=== PATIENT | female | born 1950 | race Caucasian/White ===

== ENCOUNTER → 2016-11-11 | Outpatient (CLI) | payer OTHER ==
[~2016-11-11] MED LIST: DXY100 PO; EPP3/2 IM; FLNIN NAE; LISI-792 PO; LORA10CA2 PO
--- NOTE | 2016-11-11 13:32 | MAMMOGRAPHY REPORT ---
BILATERAL DIGITAL SCREENING MAMMOGRAM WITH CAD: 11/11/2016 TECHNIQUE: Current study was also evaluated with a Computer Aided Detection (CAD) system. Bilatera l CC and MLO views were obtained. COMPARISON: Comparison is made to exams dated: 11/11/2015 mammogram, 11/06/2014 mammogram, 10/31/2012 mammogram, 10/31/2011 mammogram, 11/01/2013 mammogram, and 10/26/2010 mammogram - [facility]. BREAST COMPOSITION: There are scattered areas of fibroglandular density in both breasts. FINDINGS: No suspicious masses, calcifications, or areas of architectural distortion are noted in e ither breast. There has been no significant interval change compared to prior exams. IMPRESSION: ACR BI-RADS CATEGORY 1: NEGATIVE There is no mammographic evidence of malignancy. A 1 year screening mammogram is recommended. The p atient will receive written notification of the results. Approximately 10% of breast cancers are not detected with mammography. A negative mammographic repor t should not delay biopsy if a clinically suggestive mass is present. Yumiko Rivera M.D. ah/:11/11/2016 09:31:47 Radiator Specialist: Sweta HOYOS(Krystian)(M), [facility] letter sent: Normal 1/2 BI-RADS Code: ACR BI-RADS Category 1: Negative
== END | disposition home or self-care (01) ==
LOC: C.MAMM 08:53
PROVIDERS: ATTEND Family Medicine
DX: Z12.31 Encounter for screening mammogram for malignant neoplasm of breast (principal)

== ENCOUNTER 2017-06-30 15:43 | Inpatient (IN) | payer OTHER ==
[~2017-06-30] VITALS: Ht 175.3 cm; Wt 109.0 kg
[2017-06-30] MEDS ORDERED: MoRPHine SULFATE 4 MG/ML 1 ML CARP\\VIAL IV STA ×3 (16:04→20:18)
[2017-06-30] MEDS ORDERED: SODIUM CHLORIDE 0.9% 1000ML 1,000 ML IV STA (16:04)
--- NOTE | 2017-06-30 16:18 | EMERGENCY ROOM VISIT NOTE ---
History First contact with patient: 15:51 Chief Complaint: ABDOMINAL PAIN Stated Complaint: STOMACH AND BOWEL PAIN,GAS History of Present Illness The patient is a 67 year old female who presents to the Emergency Room with complaints of left lower quadrant pain that started this morning. She states the pain has become constant, does not radiate, remains in the left lower quadrant, describes as a throbbing and squeezing pain, worse with certain movements, 6/10. She reports chronic issues with gas pain like this, but it usually responds to Gas-X, she took Gas-X today and it did not help at all. She has not tried anything else for the pain. Patient reports a long and complicated history of "GI issues" including diverticulosis, a known "helped" in her left-sided intestines that flares up, and colitis. She states the last time she had a flare of her symptoms was over 3 years ago. She reports some diarrhea off and on since yesterday, but denies any blood or dark tarry stools. She denies any fevers or chills, nausea, vomiting, back pain, urinary symptoms. Past surgical history includes cholecystectomy and splenectomy. Review of Systems A complete 10 point review of systems was reviewed with the patient with pertinent positives and negatives as per history of present illness. All else were negative. Past Medical/Surgical History Medical Problems: (1) Dyslipidemia (2) Hypertension (3) Meningioma (4) Pulmonary nodule Surgical Problems: (1) Status post cholecystectomy (2) Status post hysterectomy (3) Status post splenectomy Family History Heart disease Malignancy Social History Smoking Status: Never Smoker Drug Use: none Marital Status: Housing Status: lives with family Current/Historical Medications Scheduled Amlodipine Besylate (Amlodipine Besylate), 5 MG PO DAILY Azelastine HCl (Azelastine Hydrochloride), 2 SPRAYS RICHARD HS Epinephrine (Epipen 2-Gerhard), 0.3 MG INJ PRN UD Fluticasone Propionate (Fluticasone Propionate), 2 SPRAYS RICHARD BID Multivitamins/Minerals (Mvi With Minerals), 2 TAB PO DAILY [True Biotic], 1 TAB PO DAILY Allergies Uncoded Allergies: TREE NUTS (Allergy, Intermediate, LIP & TONGUE SWELLING, 07/10/12) Physical Exam Vital Signs Date Time Temp Pulse Resp B/P (MAP) Pulse Ox O2 Delivery O2 Flow Rate FiO2 06/30/17 23:01 123/86 06/30/17 22:50 70 96 06/30/17 22:35 73 14 92 06/30/17 22:31 141/76 06/30/17 22:27 90 20 123/78 98 Room Air 06/30/17 22:26 123/78 06/30/17 22:20 70 93 06/30/17 22:05 68 14 95 06/30/17 22:01 117/75 06/30/17 21:50 71 13 93 06/30/17 21:41 73 06/30/17 21:20 72 18 95 06/30/17 21:05 75 20 95 06/30/17 21:01 119/74 06/30/17 20:50 77 13 95 06/30/17 20:45 77 16 94 Nasal Cannula 2.0 06/30/17 20:34 Room Air 2.0 06/30/17 20:31 127/80 06/30/17 20:30 80 23 89 Room Air 06/30/17 20:01 128/77 06/30/17 20:00 77 24 91 06/30/17 19:45 74 16 92 06/30/17 19:31 139/77 06/30/17 19:30 70 16 96 06/30/17 19:28 137/80 06/30/17 18:45 77 16 06/30/17 18:09 68 20 144/86 98 Room Air 06/30/17 17:35 68 06/30/17 15:47 36.9 97 20 182/107 94 Room Air Physical Exam CONSTITUTIONAL: No acute distress. Well appearing and well nourished. Alert and oriented X 4 with normal affect. HEENT: Normocephalic, atraumatic. Pupils equal, round and reactive to light, EOMI. TMs normal. Pharynx normal. Moist mucous membranes. NECK: Supple, full active range of motion without discomfort. RESPIRATORY: Clear to auscultation bilaterally with no wheezing, crackles, rhonchi or stridor. Equal expansion bilaterally. CARDIOVASCULAR: Regular rate and rhythm with no murmurs, rubs or gallops. Normal peripheral perfusion. No edema. GASTROINTESTINAL: Moderately tender to palpation in the left lower quadrant, no rebound tenderness or guarding. The remainder of the abdomen is nontender to palpation. No palpable masses or organomegaly. Soft, nondistended, obese. Hyperactive bowel sounds present in all quadrants. MUSCULOSKELETAL: Full range of motion of all joints without discomfort. INTEGUMENTARY: No rash or other significant dermatologic conditions noted. NEUROLOGIC: Cranial nerves II-XII grossly intact. No focal neurologic deficits noted. Medical Decision & Procedures ER Provider Diagnostic Interpretation: ABD/PELVIS IV AND ORAL CONT CLINICAL HISTORY: 67 years-old Female presenting with LLQ pain, eval diverticulitis, colitis, abscess. TECHNIQUE: Multidetector CT of the abdomen and pelvis was performed after the administration of intravenous contrast. IV contrast: 116 mL of Optiray 320. A dose lowering technique was used consistent with the principles of ALARA (as low as reasonably achievable). COMPARISON: 11/05/2012. CT DOSE (mGy.cm): The estimated cumulative dose is 1492.57 mGy.cm. 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 Lung bases: Stable 8 mm solid perifissural right middle lobe nodule (series 3 image 19) no new nodule. Bandlike opacity in the left lung base likely atelectasis or scarring. Multichamber enlargement of the heart. No pericardial or pleural effusion. Liver: Mildly macronodular contour of the liver. No focal lesion. Patent hepatic vasculature. Biliary: Stable degree of moderate intrahepatic and marked extrahepatic biliary ductal dilatation. No gross evidence of an obstructing mass or calculus. Gallbladder surgically absent. Pancreas: Mild prominence of the pancreatic duct, unchanged from prior. Normal parenchyma. Spleen: Splenosis in the left upper quadrant likely from prior trauma and/or splenectomy. Adrenal glands: Mild nodular thickening of the left adrenal gland, nonspecific and unchanged from prior. Right adrenal gland normal. Kidneys and ureters: Normal. No hydronephrosis. Bladder: Normal. Pelvic organs: Uterus and ovaries normal. Bowel: Moderate stool burden. Diverticulosis at the junction of the descending and sigmoid colon with focal wall thickening and pericolonic fat stranding, likely chronic diverticular disease with superimposed mild acute diverticulitis. Few diverticula also noted in the region of the splenic flexure with associated bowel wall thickening, likely chronic diverticular disease. No bowel obstruction. Small bowel loop within the right ventral abdominal wall hernia, unchanged. Hyperdensity in the lumen of the proximal bowel may relate to medication administration. Peritoneal cavity: No free fluid or intraperitoneal gas. Lymph nodes: No enlarged lymph nodes in the abdomen or pelvis. Vasculature: Atherosclerosis of the normal caliber abdominal aorta. IVC patent. Abdominal wall: Postsurgical changes of the anterior abdominal wall with focal herniation of small bowel in the right ventral abdomen, unchanged. Small fat-containing umbilical hernia. Calcified granulomas in the buttocks likely relate to medication administration. Musculoskeletal: Degenerative changes of the spine. IMPRESSION: 1. Findings consistent with chronic diverticular disease at the junction of the descending and sigmoid colon with superimposed mild uncomplicated acute diverticulitis. 2. Chronic findings as above. Laboratory Results 06/30/17 16:35 Red Blood Count 4.22, Mean Corpuscular Volume 95.3, Mean Corpuscular Hemoglobin 31.5, Mean Corpuscular Hemoglobin Concent 33.1, Mean Platelet Volume 10.8, Neutrophils (%) (Auto) 57.9, Lymphocytes (%) (Auto) 30.3, Monocytes (%) (Auto) 10.3, Eosinophils (%) (Auto) 0.9, Basophils (%) (Auto) 0.4, Neutrophils # (Auto ) 6.08, Lymphocytes # (Auto) 3.18, Monocytes # (Auto) 1.08, Eosinophils # (Auto ) 0.09, Basophils # (Auto) 0.04 06/30/17 16:35 Test 06/30/17 00:00 06/30/17 16:35 Urine Color YELLOW Urine Appearance CLEAR (CLEAR) Urine pH 5.5 (4.5-7.5) Urine Specific [place] 1.010 (1.000-1.030) Urine Protein NEG (NEG) Urine Glucose (UA) NEG (NEG) Urine Ketones NEG (NEG) Urine Occult Blood TRACE (NEG) Urine Nitrite NEG (NEG) Urine Bilirubin NEG (NEG) Urine Urobilinogen NEG (NEG) Urine Leukocyte Esterase NEG (NEG) Urine WBC (Auto) 1-5 /hpf (0-5) Urine RBC (Auto) 0-4 /hpf (0-4) Urine Hyaline Casts (Auto) 1-5 /lpf (0-5) Urine Epithelial Cells (Auto) 5-10 /lpf (0-5) Urine Bacteria (Auto) NEG (NEG) White Blood Count 10.49 K/uL (4.8-10.8) Red Blood Count 4.22 M/uL (4.2-5.4) Hemoglobin 13.3 g/dL (12.0-16.0) Hematocrit 40.2 % (37-47) Mean Corpuscular Volume 95.3 fL (80-100) Mean Corpuscular Hemoglobin 31.5 pg (25-34) Mean Corpuscular Hemoglobin Concent 33.1 g/dl (32-36) Platelet Count 403 K/uL (130-400) Mean Platelet Volume 10.8 fL (7.4-10.4) Neutrophils (%) (Auto) 57.9 % Lymphocytes (%) (Auto) 30.3 % Monocytes (%) (Auto) 10.3 % Eosinophils (%) (Auto) 0.9 % Basophils (%) (Auto) 0.4 % Neutrophils # (Auto) 6.08 K/uL (1.4-6.5) Lymphocytes # (Auto) 3.18 K/uL (1.2-3.4) Monocytes # (Auto) 1.08 K/uL (0.11-0.59) Eosinophils # (Auto) 0.09 K/uL (0-0.5) Basophils # (Auto) 0.04 K/uL (0-0.2) RDW Standard Deviation 43.7 fL (36.4-46.3) RDW Coefficient of Variation 12.7 % (11.5-14.5) Immature Granulocyte % (Auto) 0.2 % Immature Granulocyte # (Auto) 0.02 K/uL (0.00-0.02) Anion Gap 8.0 mmol/L (3-11) Est Creatinine Clear Calc Drug Dose 95.8 ml/min Estimated GFR () 93.9 Estimated GFR (Non- 81.0 BUN/Creatinine Ratio 15.6 (10-20) Lactic Acid Level 1.2 mmol/L (0.4-2.0) Calcium Level 9.1 mg/dl (8.5-10.1) Total Bilirubin 0.8 mg/dl (0.2-1) Direct Bilirubin 0.2 mg/dl (0-0.2) Aspartate Amino Transf (AST/SGOT) 19 U/L (15-37) Alanine Aminotransferase (ALT/SGPT) 18 U/L (12-78) Alkaline Phosphatase 161 U/L (45-117) Total Protein 8.0 gm/dl (6.4-8.2) Albumin 3.6 gm/dl (3.4-5.0) Lipase 94 U/L (73-393) Medications Administered Medications (Trade) Dose Ordered Sig/Misti Route Start Time Stop Time Status Last Admin Dose Admin Sodium Chloride 1,000 ml @ 999 mls/hr Q1H1M STAT IV 06/30/17 16:04 06/30/17 17:04 DC 06/30/17 16:53 999 MLS/HR Morphine Sulfate (MoRPHine SULFATE INJ) 4 mg NOW STAT IV 06/30/17 16:04 06/30/17 16:07 DC 06/30/17 16:53 4 MG Morphine Sulfate (MoRPHine SULFATE INJ) 4 mg NOW STAT IV 06/30/17 19:27 06/30/17 19:28 DC 06/30/17 19:35 4 MG Morphine Sulfate (MoRPHine SULFATE INJ) 4 mg NOW STAT IV 06/30/17 20:18 06/30/17 20:20 DC 06/30/17 20:29 4 MG Ondansetron HCl (Zofran Inj) 4 mg NOW STAT IV 06/30/17 20:18 06/30/17 20:20 DC 06/30/17 20:26 4 MG Piperacillin Sod/ Tazobactam Sod (Zosyn Iv) 4.5 gm NOW STAT IV 06/30/17 21:54 06/30/17 21:55 DC 06/30/17 22:47 4.5 GM Medical Decision CC: Patient presenting with complaint of left lower quadrant abdominal pain Interpretation of Labs: No leukocytosis, no anemia, no significant electrolyte abnormalities, normal renal function, normal liver enzymes and lipase, normal lactic acid. UA negative. Differential Diagnosis: Includes, but not limited to diverticulitis, diverticulosis, gastroenteritis, colitis, small bowel obstruction, appendicitis , intra-abdominal abscess, among others. Medication Reconciliation: I attest that I have personally reviewed the patient' s current medication list. Vital signs review: I reviewed the patient's vital signs and interpret them as follows: T: Afebrile; BP: Hypertensive; HR: Tachycardic; RR: Within normal limits; Pulse Ox: Within normal limits on room air. Blood pressure screening: The patient was found to have an elevated blood pressure, this was improved after interventions and was felt to be situational. Summary: Patient was evaluated at bedside, history of physical exam performed. Patient is alert and oriented, in no acute distress, but does appear to be in some pain. Resting in the stretcher. Patient is moderately tender in the left lower quadrant to palpation, the abdomen is otherwise soft and nontender. Hyperactive bowel sounds. Orders were placed at bedside for labs, UA, IV fluids for hydration, IV morphine for pain, CT abdomen/pelvis with oral and IV contrast to evaluate for intra-abdominal infection/inflammatory bowel disease. Patient discussed with Dr. Lo, who agrees with my assessment and plan. Labs reviewed as above, no acute abnormalities. CT imaging reviewed, consistent with mild acute diverticulitis, uncomplicated with no evidence of abscess, obstruction, or perforation. Patient reassessed multiple times throughout ED stay, she has had intermittent improvement in pain with morphine, however her pain continues to return and remain severe. She has also had several episodes of vomiting unrelieved with Zofran. I discussed all results with the patient and her , and patient states she does not think she will be able to tolerate oral medication and is not comfortable being discharged. I discussed the option of admission, she is agreeable to this. Patient states she has been on Cipro/Flagyl treatment in the past and did not tolerate this well. IV Zosyn ordered, with option for Augmentin for outpatient treatment upon discharge. I spoke with Dr. Alonso, hospitalist, who agrees to admit the patient. Patient stable at time of admission. Impression Primary Impression: Acute diverticulitis Additional Impression: Nausea & vomiting Departure Information Dispostion Admitted as an inpatient Condition FAIR Referrals Keanu Conde M.D. (PCP) Patient Instructions My [facility] Problem Qualifiers Additional Impression: Nausea & vomiting Vomiting type: unspecified Vomiting Intractability: intractable Qualified Codes: R11.2 - Nausea with vomiting, unspecified
[2017-06-30] MEDS ORDERED: ALPHTAB4 PO (16:42)
[2017-06-30] MEDS ORDERED: FLNIN/ NAE (16:42)
[2017-06-30] MEDS ORDERED: AZEL0.1S2 NAE (16:42)
[2017-06-30] MEDS ORDERED: NRV/5 PO (16:42)
[2017-06-30] MEDS ORDERED: EPP3/2 INJ (16:42)
[2017-06-30] MEDS ORDERED: TRUE BIOTIC PO (16:42)
[2017-06-30] MEDS ORDERED: MULT-513 PO (16:42)
[2017-06-30 16:47] LABS: BASO % 0.4 %; BASO ABS # 0.04 K/uL (0-0.2); COMPLETE YES; EOS % 0.9 %; HEMATOCRIT 40.2 % (37-47); IG% 0.2 %; LYMPH % 30.3 %; LYMPH ABS # 3.18 K/uL (1.2-3.4); MEAN CELL VOLUME 95.3 fL (80-100); MEAN CORPUSCULAR HEMOGLOBIN 31.5 pg (25-34); MEAN CORPUSCULAR HGB CONC 33.1 g/dl (32-36); MEAN PLATELET VOLUME 10.8 fL (7.4-10.4); MONO % 10.3 %; NEUT % 57.9 %; PLATELET COUNT 403 K/uL (130-400); RED BLOOD COUNT 4.22 M/uL (4.2-5.4); WHITE BLOOD COUNT 10.49 K/uL (4.8-10.8)
[2017-06-30 16:57] LABS: URINE APPEARANCE CLEAR (CLEAR); URINE BILIRUBIN NEG (NEG); URINE COLOR YELLOW; URINE NITRITE NEG (NEG); URINE PH 5.5 (4.5-7.5); UROBILINOGEN NEG (NEG)
[2017-06-30 16:58] LABS: MANUAL MICROSCOPIC REQUIRED? NO; REVIEW REQ? NO
[2017-06-30 17:15] LABS: BUN/CREATININE RATIO 15.6 (10-20); CALCIUM 9.1 mg/dl (8.5-10.1); CREATININE 0.77 mg/dl (0.60-1.20); POTASSIUM 3.9 mmol/L (3.5-5.1)
[2017-06-30] MEDS ORDERED: OPTIRAY 320 IV PRN (18:00)
--- NOTE | 2017-06-30 19:16 | DIAGNOSTIC IMAGING REPORT ---
ABD/PELVIS IV AND ORAL CONT CLINICAL HISTORY: 67 years-old Female presenting with LLQ pain, eval diverticulitis, colitis, abscess. TECHNIQUE: Multidetector CT of the abdomen and pelvis was performed after the administration of intravenous contrast. IV contrast: 116 mL of Optiray 320. A dose lowering technique was used consistent with the principles of ALARA (as low as reasonably achievable). COMPARISON: 11/05/2012. CT DOSE (mGy.cm): The estimated cumulative dose is 1492.57 mGy.cm. 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 Lung bases: Stable 8 mm solid perifissural right middle lobe nodule (series 3 image 19) no new nodule. Bandlike opacity in the left lung base likely atelectasis or scarring. Multichamber enlargement of the heart. No pericardial or pleural effusion. Liver: Mildly macronodular contour of the liver. No focal lesion. Patent hepatic vasculature. Biliary: Stable degree of moderate intrahepatic and marked extrahepatic biliary ductal dilatation. No gross evidence of an obstructing mass or calculus. Gallbladder surgically absent. Pancreas: Mild prominence of the pancreatic duct, unchanged from prior. Normal parenchyma. Spleen: Splenosis in the left upper quadrant likely from prior trauma and/or splenectomy. Adrenal glands: Mild nodular thickening of the left adrenal gland, nonspecific and unchanged from prior. Right adrenal gland normal. Kidneys and ureters: Normal. No hydronephrosis. Bladder: Normal. Pelvic organs: Uterus and ovaries normal. Bowel: Moderate stool burden. Diverticulosis at the junction of the descending and sigmoid colon with focal wall thickening and pericolonic fat stranding, likely chronic diverticular disease with superimposed mild acute diverticulitis. Few diverticula also noted in the region of the splenic flexure with associated bowel wall thickening, likely chronic diverticular disease. No bowel obstruction. Small bowel loop within the right ventral abdominal wall hernia, unchanged. Hyperdensity in the lumen of the proximal bowel may relate to medication administration. Peritoneal cavity: No free fluid or intraperitoneal gas. Lymph nodes: No enlarged lymph nodes in the abdomen or pelvis. Vasculature: Atherosclerosis of the normal caliber abdominal aorta. IVC patent. Abdominal wall: Postsurgical changes of the anterior abdominal wall with focal herniation of small bowel in the right ventral abdomen, unchanged. Small fat-containing umbilical hernia. Calcified granulomas in the buttocks likely relate to medication administration. Musculoskeletal: Degenerative changes of the spine. IMPRESSION: 1. Findings consistent with chronic diverticular disease at the junction of the descending and sigmoid colon with superimposed mild uncomplicated acute diverticulitis. 2. Chronic findings as above. Electronically signed by: Arik Carlson M.D. 06/30/2017 7:14 PM Dictated Date/Time: 06/30/2017 7:05 PM
[2017-06-30] MEDS ORDERED: ONDANSETRON INJ 2 MG/ML 2 ML VIAL IV STA (20:18)
[2017-06-30] MEDS ORDERED: PIPERACILLIN/TAZOBACTAM 4.5 GM/100ML D5W IV STA (21:54)
--- NOTE | 2017-06-30 23:03 | History and Physical ---
History & Physical Date & Time of Service: Jun 30, 2017 at 23:03 Chief Complaint: Stomach And Bowel Pain,Gas Primary Care Physician: Keanu Conde M.D. History of Present Illness Source: patient, spouse, clinic records, hospital records 67 year old female with PMH of HTN, Diverticulosis, obesity, dyslipidemia presents to the Emergency Room with complaints of left lower quadrant abdominal pain associated with nausea and vomiting that started this morning. Pt describes the pain has constant, non radiate, throbbing and squeezing pain, worse with certain movements, 6/10. she said that she tried to take Gas-X with no relief. She said that yesterday she had diarrhea that seems resolved. Pt saw gastro back in January for her on/off diverticulosis. she said that she usually has pain base on what she eats, but she she said today pain was worst. she said that the last time she had similar abdominal pain was 3 yrs ago Pt said that she cannot tolerated flagyl and cipro because she develops yeast infection while on them. Denies any chest pain, palpitation, dizziness, fevers, chills, urinary symptoms. Past Medical/Surgical History Medical Problems: (1) Dyslipidemia Status: Chronic (2) Hypertension Status: Chronic (3) Meningioma Permanent Comment: 6 x [address] 09/16/14 Status: Chronic (4) Pulmonary nodule Permanent Comment: 6 mm nodule right lung per CT 09/18/14 Status: Chronic Surgical Problems: (1) Status post cholecystectomy Status: Chronic (2) Status post hysterectomy Status: Chronic (3) Status post splenectomy Status: Chronic Family History Heart disease Malignancy Social History Smoking Status: Never Smoker Drug Use: none Marital Status: Immunizations History of Influenza Vaccine: Yes Influenza Vaccine Date: Jul 05, 2012 History of Tetanus Vaccine?: Yes History of Pneumococcal: No History of Hepatitis B Vaccine: Yes Multi-Drug Resistant Organisms History of MDRO: No Allergies Uncoded Allergies: TREE NUTS (Allergy, Intermediate, LIP & TONGUE SWELLING, 07/10/12) Home Medications Scheduled Rvgou-X-Dtdttuekiyyyi (Beano), 2 TAB PO TIDM Amlodipine Besylate (Amlodipine Besylate), 5 MG PO DAILY Azelastine HCl (Azelastine Hydrochloride), 2 SPRAYS RICHARD HS Epinephrine (Epipen 2-Gerhard), 0.3 MG INJ PRN UD Fluticasone Propionate (Fluticasone Propionate), 2 SPRAYS RICHARD BID Multivitamins/Minerals (Mvi With Minerals), 2 TAB PO DAILY [True Biotic], 1 TAB PO DAILY Review of Systems Constitutional: No fever, No chills Eyes: No worsening of vision, No diplopia ENT: No unusual epistaxis, No nasal symptoms Respiratory: No cough, No sputum, No wheezing, No shortness of breath Cardiovascular: No chest pain, No claudication, No palpitations Abdomen: + pain, + nausea, + vomiting Musculoskeletal: No calf pain Genitourinary - Female: No dysuria, No urinary frequency Neurologic: No paralysis, No weakness Psychiatric: No anxiety, No substance abuse Endocrine: No fatigue Hematologic / Lymphatic: No abnormal bleeding/bruising Integumentary: No rash, No itch Physical Exam Vital Signs Date Time Temp Pulse Resp B/P (MAP) Pulse Ox O2 Delivery O2 Flow Rate FiO2 06/30/17 22:27 90 20 123/78 98 Room Air 06/30/17 21:41 73 06/30/17 20:45 77 16 94 Nasal Cannula 2.0 06/30/17 20:34 Room Air 2.0 06/30/17 20:31 127/80 06/30/17 20:30 80 23 89 Room Air 06/30/17 20:01 128/77 06/30/17 20:00 77 24 91 06/30/17 19:45 74 16 92 06/30/17 19:31 139/77 06/30/17 19:30 70 16 96 06/30/17 19:28 137/80 06/30/17 18:45 77 16 06/30/17 18:09 68 20 144/86 98 Room Air 06/30/17 17:35 68 06/30/17 15:47 36.9 97 20 182/107 94 Room Air General Appearance: WD/WN, no apparent distress Head: normocephalic, atraumatic Eyes: normal inspection, PERRL, EOMI ENT: hearing grossly normal Neck: no JVD, trachea midline Respiratory/Chest: normal breath sounds, no respiratory distress, no accessory muscle use Cardiovascular: regular rate, rhythm, no edema, no JVD Abdomen/GI: + tenderness (LLQ ) Back: no CVA tenderness Extremities/Musculoskelatal: no calf tenderness Neurologic/Psych: no motor/sensory deficits, alert, normal mood/affect, oriented x 3 Skin: warm/dry, no rash Diagnostics Laboratory Results Results Past 24 Hours Test 06/30/17 00:00 06/30/17 16:35 Range/Units Urine Color YELLOW Urine Appearance CLEAR CLEAR Urine pH 5.5 4.5-7.5 Urine Specific [place] 1.010 1.000-1.030 Urine Protein NEG NEG Urine Glucose (UA) NEG NEG Urine Ketones NEG NEG Urine Occult Blood TRACE NEG Urine Nitrite NEG NEG Urine Bilirubin NEG NEG Urine Urobilinogen NEG NEG Urine Leukocyte Esterase NEG NEG Urine WBC (Auto) 1-5 0-5 /hpf Urine RBC (Auto) 0-4 0-4 /hpf Urine Hyaline Casts (Auto) 1-5 0-5 /lpf Urine Epithelial Cells (Auto) 5-10 0-5 /lpf Urine Bacteria (Auto) NEG NEG White Blood Count 10.49 4.8-10.8 K/uL Red Blood Count 4.22 4.2-5.4 M/uL Hemoglobin 13.3 12.0-16.0 g/dL Hematocrit 40.2 37-47 % Mean Corpuscular Volume 95.3 80-100 fL Mean Corpuscular Hemoglobin 31.5 25-34 pg Mean Corpuscular Hemoglobin Concent 33.1 32-36 g/dl Platelet Count 403 130-400 K/uL Mean Platelet Volume 10.8 7.4-10.4 fL Neutrophils (%) (Auto) 57.9 % Lymphocytes (%) (Auto) 30.3 % Monocytes (%) (Auto) 10.3 % Eosinophils (%) (Auto) 0.9 % Basophils (%) (Auto) 0.4 % Neutrophils # (Auto) 6.08 1.4-6.5 K/uL Lymphocytes # (Auto) 3.18 1.2-3.4 K/uL Monocytes # (Auto) 1.08 0.11-0.59 K/uL Eosinophils # (Auto) 0.09 0-0.5 K/uL Basophils # (Auto) 0.04 0-0.2 K/uL RDW Standard Deviation 43.7 36.4-46.3 fL RDW Coefficient of Variation 12.7 11.5-14.5 % Immature Granulocyte % (Auto) 0.2 % Immature Granulocyte # (Auto) 0.02 0.00-0.02 K/uL Sodium Level 137 136-145 mmol/L Potassium Level 3.9 3.5-5.1 mmol/L Chloride Level 106 98-107 mmol/L Carbon Dioxide Level 23 21-32 mmol/L Anion Gap 8.0 3-11 mmol/L Blood Urea Nitrogen 12 7-18 mg/dl Creatinine 0.77 0.60-1.20 mg/dl Est Creatinine Clear Calc Drug Dose 95.8 ml/min Estimated GFR () 93.9 Estimated GFR (Non- 81.0 BUN/Creatinine Ratio 15.6 10-20 Random Glucose 93 70-99 mg/dl Lactic Acid Level 1.2 0.4-2.0 mmol/L Calcium Level 9.1 8.5-10.1 mg/dl Total Bilirubin 0.8 0.2-1 mg/dl Direct Bilirubin 0.2 0-0.2 mg/dl Aspartate Amino Transf (AST/SGOT) 19 15-37 U/L Alanine Aminotransferase (ALT/SGPT) 18 12-78 U/L Alkaline Phosphatase 161 45-117 U/L Total Protein 8.0 6.4-8.2 gm/dl Albumin 3.6 3.4-5.0 gm/dl Lipase 94 73-393 U/L Diagnostic Radiology ABD/PELVIS IV AND ORAL CONT CLINICAL HISTORY: 67 years-old Female presenting with LLQ pain, eval diverticulitis, colitis, abscess. TECHNIQUE: Multidetector CT of the abdomen and pelvis was performed after the administration of intravenous contrast. IV contrast: 116 mL of Optiray 320. A dose lowering technique was used consistent with the principles of ALARA (as low as reasonably achievable). COMPARISON: 11/05/2012. CT DOSE (mGy.cm): The estimated cumulative dose is 1492.57 mGy.cm. 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 Lung bases: Stable 8 mm solid perifissural right middle lobe nodule (series 3 image 19) no new nodule. Bandlike opacity in the left lung base likely atelectasis or scarring. Multichamber enlargement of the heart. No pericardial or pleural effusion. Liver: Mildly macronodular contour of the liver. No focal lesion. Patent hepatic vasculature. Biliary: Stable degree of moderate intrahepatic and marked extrahepatic biliary ductal dilatation. No gross evidence of an obstructing mass or calculus. Gallbladder surgically absent. Pancreas: Mild prominence of the pancreatic duct, unchanged from prior. Normal parenchyma. Spleen: Splenosis in the left upper quadrant likely from prior trauma and/or splenectomy. Adrenal glands: Mild nodular thickening of the left adrenal gland, nonspecific and unchanged from prior. Right adrenal gland normal. Kidneys and ureters: Normal. No hydronephrosis. Bladder: Normal. Pelvic organs: Uterus and ovaries normal. Bowel: Moderate stool burden. Diverticulosis at the junction of the descending and sigmoid colon with focal wall thickening and pericolonic fat stranding, likely chronic diverticular disease with superimposed mild acute diverticulitis. Few diverticula also noted in the region of the splenic flexure with associated bowel wall thickening, likely chronic diverticular disease. No bowel obstruction. Small bowel loop within the right ventral abdominal wall hernia, unchanged. Hyperdensity in the lumen of the proximal bowel may relate to medication administration. Peritoneal cavity: No free fluid or intraperitoneal gas. Lymph nodes: No enlarged lymph nodes in the abdomen or pelvis. Vasculature: Atherosclerosis of the normal caliber abdominal aorta. IVC patent. Abdominal wall: Postsurgical changes of the anterior abdominal wall with focal herniation of small bowel in the right ventral abdomen, unchanged. Small fat-containing umbilical hernia. Calcified granulomas in the buttocks likely relate to medication administration. Musculoskeletal: Degenerative changes of the spine. IMPRESSION: 1. Findings consistent with chronic diverticular disease at the junction of the descending and sigmoid colon with superimposed mild uncomplicated acute diverticulitis. 2. Chronic findings as above. Electronically signed by: Arik Carlson M.D. 06/30/2017 7:14 PM Dictated Date/Time: 06/30/2017 7:05 PM Impression Assessment and Plan Acute diverticulitis Present with LLQ abdominal pain associated with Nausea and vomiting CT abd/Pelvis shoed findings consistent with chronic diverticular disease at the junction of the descending and sigmoid colon with superimposed mild uncomplicated acute diverticulitis. Received Zosyn in the ER Will continue IV zosyb for now Pain control and IVF NPO for now GI consult Lung Nodule Stable HTN continue Novasc stable DVT px on Lovenox subq Code Status Full code Level of Care Med/Surg Resuscitation Status FULL RESUSCITATION VTE Prophylaxis VTE Risk Assessment Done? Y/N: Yes Risk Level: Moderate Given or contraindicated: Enoxaparin (Lovenox)SQ
[2017-07-01] MEDS ORDERED: PIPERACILL/TAZOBAC CONSULT ACTIVE PRN (03:00)
[2017-07-01] MEDS: SODIUM CHLORIDE 0.9% 1000ML 1,000 ML IV SCH ×2 (03:26→13:20)
[2017-07-01 03:53] VITALS: BP 160/85; PULSE 70; TEMP 36.7; Ht 175.3 cm; Wt 109.0 kg
[2017-07-01] MEDS: PIPERACILL/TAZOBAC IV 3.375 GM in DEXTROSE 5% 100ML 100 ML IV SCH ×2 (04:15→12:00)
[2017-07-01] MEDS: ONDANSETRON INJ 2 MG/ML 2 ML VIAL IV PRN ×2 (04:15→09:02)
[2017-07-01 06:30] LABS: INR 0.9 (0.9-1.1)
[2017-07-01] MEDS ORDERED: INFLUENZA VACCINE HIGH DOSE 65+ 0.5 ML SYR IM. ONE (06:30)
[2017-07-01] MEDS ORDERED: INFLUENZA ADMINISTRATION CHARGE ONE (06:30)
[2017-07-01 07:13] LABS: BUN/CREATININE RATIO 16.4 (10-20); CALCIUM 8.6 mg/dl (8.5-10.1); CREATININE 0.62 mg/dl (0.60-1.20); POTASSIUM 3.9 mmol/L (3.5-5.1)
[2017-07-01 07:15] LABS: ALB/GLOB RATIO 0.7 (0.9-2)
[2017-07-01 08:00] VITALS: O2SAT 92
[2017-07-01] MEDS: FLUTICASONE PROPIONATE NA SPR 16 GM BTL NAE SCH ×2 (08:00→19:56)
[2017-07-01] MEDS: CEROVITE ADV FORMULA TAB PO SCH (08:00)
[2017-07-01] MEDS: [UNRECOGNIZED DRUG - OTHER] SCH (08:00)
[2017-07-01] MEDS ORDERED: PROMETHAZINE HCL INJ 12.5 MG in SODIUM CHLORIDE 0.9% 50ML 50 ML IV PRN (10:45)
[2017-07-01] MEDS: AMLODIPINE BESYLATE 5 MG TAB PO SCH (13:16)
[2017-07-01] MEDS: ENOXAPARIN 40 MG/0.4 ML SYR SQ SCH (13:20)
--- NOTE | 2017-07-01 14:07 | Medical Consult ---
Consultation Note Date of Service Jul 01, 2017. Consultation Note Reason for consult: diverticulitis Source: patient, clinic records, hospital records 67 yo female with h/o diverticulitis. She has had long h/o intermittent LLQ pain that occurs q 2-3 months and typically resolves after a day after taking Gas-x and Immodium. She has a prior h/o diverticulitis, with ER visits in 2011 and 2012; csocpy in 2013 showed sigmoid tics but was limited by fair prep. She is now admitted for LLQ pain that began am and is similar to prior attacks , but did not resolve by Monday afternoon. She presented to ER Mon evening, and underwent CT which suggested uncomplicated diverticulitis. WBC was normal. She denied h/o n/v; denies fever. She was placed on Zosyn overnight. At present, she has no pain, is passing flatus, and is hungry. Past Medical/Surgical History Medical Problems: (1) Dyslipidemia Status: Chronic (2) Hypertension Status: Chronic (3) Meningioma Permanent Comment: 6 x [address] 09/16/14 Status: Chronic (4) Pulmonary nodule Permanent Comment: 6 mm nodule right lung per CT 09/18/14 Status: Chronic Surgical Problems: (1) Status post cholecystectomy Status: Chronic (2) Status post hysterectomy Status: Chronic (3) Status post splenectomy Status: Chronic Family History Heart disease Malignancy Social History Smoking Status: Never Smoker Drug Use: none Marital Status: Immunizations History of Influenza Vaccine: Yes Influenza Vaccine Date: Jul 05, 2012 History of Tetanus Vaccine?: Yes History of Pneumococcal: No History of Hepatitis B Vaccine: Yes Multi-Drug Resistant Organisms History of MDRO: No Allergies Uncoded Allergies: TREE NUTS (Allergy, Intermediate, LIP & TONGUE SWELLING, 07/10/12) Home Medications Scheduled Kdtyu-Q-Paummtjshrjvi (Beano), 2 TAB PO TIDM Amlodipine Besylate (Amlodipine Besylate), 5 MG PO DAILY Azelastine HCl (Azelastine Hydrochloride), 2 SPRAYS RICHARD HS Epinephrine (Epipen 2-Gerhard), 0.3 MG INJ PRN UD Fluticasone Propionate (Fluticasone Propionate), 2 SPRAYS RICHARD BID Multivitamins/Minerals (Mvi With Minerals), 2 TAB PO DAILY [True Biotic], 1 TAB PO DAILY Review of Systems Constitutional: No fever, No chills Eyes: No worsening of vision, No diplopia ENT: No unusual epistaxis, No nasal symptoms Respiratory: No cough, No sputum, No wheezing, No shortness of breath Cardiovascular: No chest pain, No claudication, No palpitations Abdomen: + pain, + nausea, + vomiting Musculoskeletal: No calf pain Genitourinary - Female: No dysuria, No urinary frequency Neurologic: No paralysis, No weakness Psychiatric: No anxiety, No substance abuse Endocrine: No fatigue Hematologic / Lymphatic: No abnormal bleeding/bruising Integumentary: No rash, No itch Physical Ex - H&P Physical Exam Vital Signs Date Time Temp Pulse Resp B/P (MAP) Pulse Ox O2 Delivery O2 Flow Rate FiO2 07/01/17 08:00 92 Room Air 07/01/17 03:53 36.7 70 20 160/85 Room Air 06/30/17 23:20 73 13 92 Nasal Cannula 06/30/17 23:05 67 14 94 06/30/17 23:01 123/86 06/30/17 22:50 70 96 06/30/17 22:35 73 14 92 06/30/17 22:31 141/76 06/30/17 22:27 90 20 123/78 98 Room Air 06/30/17 22:26 123/78 06/30/17 22:20 70 93 06/30/17 22:05 68 14 95 06/30/17 22:01 117/75 06/30/17 21:50 71 13 93 06/30/17 21:41 73 06/30/17 21:20 72 18 95 06/30/17 21:05 75 20 95 06/30/17 21:01 119/74 06/30/17 20:50 77 13 95 06/30/17 20:45 77 16 94 Nasal Cannula 2.0 06/30/17 20:34 Room Air 2.0 06/30/17 20:31 127/80 06/30/17 20:30 80 23 89 Room Air 06/30/17 20:01 128/77 06/30/17 20:00 77 24 91 06/30/17 19:45 74 16 92 06/30/17 19:31 139/77 06/30/17 19:30 70 16 96 06/30/17 19:28 137/80 06/30/17 18:45 77 16 06/30/17 18:09 68 20 144/86 98 Room Air 06/30/17 17:35 68 06/30/17 15:47 36.9 97 20 182/107 94 Room Air Head: normocephalic, atraumatic Eyes: normal inspection, PERRL, EOMI ENT: hearing grossly normal Neck: no JVD, trachea midline Respiratory/Chest: normal breath sounds, no respiratory distress, no accessory muscle use Cardiovascular: regular rate, rhythm, no edema, no JVD Abdomen/GI: large pannus, non tender, normal BS Back: no CVA tenderness Extremities/Musculoskelatal: no calf tenderness Neurologic/Psych: no motor/sensory deficits, alert, normal mood/affect, oriented x 3 Skin: warm/dry, no rash Diagnostics - H&P Diagnostics Laboratory Results Results Past 24 Hours Last 24 Hours Test 06/30/17 16:35 07/01/17 05:45 07/01/17 05:46 White Blood Count 10.49 K/uL Red Blood Count 4.22 M/uL Hemoglobin 13.3 g/dL Hematocrit 40.2 % Mean Corpuscular Volume 95.3 fL Mean Corpuscular Hemoglobin 31.5 pg Mean Corpuscular Hemoglobin Concent 33.1 g/dl Platelet Count 403 K/uL Mean Platelet Volume 10.8 fL Neutrophils (%) (Auto) 57.9 % Lymphocytes (%) (Auto) 30.3 % Monocytes (%) (Auto) 10.3 % Eosinophils (%) (Auto) 0.9 % Basophils (%) (Auto) 0.4 % Neutrophils # (Auto) 6.08 K/uL Lymphocytes # (Auto) 3.18 K/uL Monocytes # (Auto) 1.08 K/uL Eosinophils # (Auto) 0.09 K/uL Basophils # (Auto) 0.04 K/uL RDW Standard Deviation 43.7 fL RDW Coefficient of Variation 12.7 % Immature Granulocyte % (Auto) 0.2 % Immature Granulocyte # (Auto) 0.02 K/uL Sodium Level 137 mmol/L 139 mmol/L Potassium Level 3.9 mmol/L 3.9 mmol/L Chloride Level 106 mmol/L 105 mmol/L Carbon Dioxide Level 23 mmol/L 26 mmol/L Anion Gap 8.0 mmol/L 8.0 mmol/L Blood Urea Nitrogen 12 mg/dl 10 mg/dl Creatinine 0.77 mg/dl 0.62 mg/dl Est Creatinine Clear Calc Drug Dose 95.8 ml/min 119.0 ml/min Estimated GFR () 93.9 109.7 Estimated GFR (Non- 81.0 94.6 BUN/Creatinine Ratio 15.6 16.4 Random Glucose 93 mg/dl 111 mg/dl Lactic Acid Level 1.2 mmol/L Calcium Level 9.1 mg/dl 8.6 mg/dl Total Bilirubin 0.8 mg/dl 1.1 mg/dl Direct Bilirubin 0.2 mg/dl Aspartate Amino Transf (AST/SGOT) 19 U/L 98 U/L Alanine Aminotransferase (ALT/SGPT) 18 U/L 76 U/L Alkaline Phosphatase 161 U/L 214 U/L Total Protein 8.0 gm/dl 7.4 gm/dl Albumin 3.6 gm/dl 3.1 gm/dl Lipase 94 U/L Prothrombin Time 10.0 SECONDS Prothromb Time International Ratio 0.9 Globulin 4.3 gm/dl Albumin/Globulin Ratio 0.7 Diagnostic Radiology ABD/PELVIS IV AND ORAL CONT CLINICAL HISTORY: 67 years-old Female presenting with LLQ pain, eval diverticulitis, colitis, abscess. TECHNIQUE: Multidetector CT of the abdomen and pelvis was performed after the administration of intravenous contrast. IV contrast: 116 mL of Optiray 320. A dose lowering technique was used consistent with the principles of ALARA (as low as reasonably achievable). COMPARISON: 11/05/2012. CT DOSE (mGy.cm): The estimated cumulative dose is 1492.57 mGy.cm. 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 Lung bases: Stable 8 mm solid perifissural right middle lobe nodule (series 3 image 19) no new nodule. Bandlike opacity in the left lung base likely atelectasis or scarring. Multichamber enlargement of the heart. No pericardial or pleural effusion. Liver: Mildly macronodular contour of the liver. No focal lesion. Patent hepatic vasculature. Biliary: Stable degree of moderate intrahepatic and marked extrahepatic biliary ductal dilatation. No gross evidence of an obstructing mass or calculus. Gallbladder surgically absent. Pancreas: Mild prominence of the pancreatic duct, unchanged from prior. Normal parenchyma. Spleen: Splenosis in the left upper quadrant likely from prior trauma and/or splenectomy. Adrenal glands: Mild nodular thickening of the left adrenal gland, nonspecific and unchanged from prior. Right adrenal gland normal. Kidneys and ureters: Normal. No hydronephrosis. Bladder: Normal. Pelvic organs: Uterus and ovaries normal. Bowel: Moderate stool burden. Diverticulosis at the junction of the descending and sigmoid colon with focal wall thickening and pericolonic fat stranding, likely chronic diverticular disease with superimposed mild acute diverticulitis. Few diverticula also noted in the region of the splenic flexure with associated bowel wall thickening, likely chronic diverticular disease. No bowel obstruction. Small bowel loop within the right ventral abdominal wall hernia, unchanged. Hyperdensity in the lumen of the proximal bowel may relate to medication administration. Peritoneal cavity: No free fluid or intraperitoneal gas. Lymph nodes: No enlarged lymph nodes in the abdomen or pelvis. Vasculature: Atherosclerosis of the normal caliber abdominal aorta. IVC patent. Abdominal wall: Postsurgical changes of the anterior abdominal wall with focal herniation of small bowel in the right ventral abdomen, unchanged. Small fat-containing umbilical hernia. Calcified granulomas in the buttocks likely relate to medication administration. Musculoskeletal: Degenerative changes of the spine. IMPRESSION: 1. Findings consistent with chronic diverticular disease at the junction of the descending and sigmoid colon with superimposed mild uncomplicated acute diverticulitis. 2. Chronic findings as above. Electronically signed by: Arik Carlson M.D. 06/30/2017 7:14 PM Dictated Date/Time: 06/30/2017 7:05 PM Impression - H&P Impression Assessment and Plan Acute diverticulitis - Appears largely clinically resolved. Can switch abx to PO Augmentin, adv diet , and anticipate discharge tomorrow. Low res diet x 1 week as outpt. Will arrange cscopy in 8 weeks as outpt. I discussed possible surgical consult to pursue elective surgery for recurrrent tic-itis; she doesn't want this. Increased LFTs, kimberly dil - She has marked kimberly dil on most recent CT, although this appears stable when compared to her prior CT in 2013. She has intermittent LFT and alk phos elevation with normal lipase which seems likely secondary to biliary stasis and sludge. She does not seem to have symptoms regarding this; would not pursue further w/u. Liver nodularity on CT - She does not have lab evidence of cirrhosis, although she most certainly has NAFLD. Would consider outpt fibroscan to look for evidence of fibrosis. Outpt Gi fu. Please call with questions over weekend.
[2017-07-01 15:42] VITALS: BP 128/83; PULSE 71; TEMP 36.8; O2SAT 95
[2017-07-01 16:00] VITALS: O2SAT 94
--- NOTE | 2017-07-01 18:15 | Progress Note ---
Medicine Progress Note Date & Time of Visit: Jul 01, 2017 at 18:15. Subjective Patient doing well, has tolerated 2 trays of clear liquids today, states she has no pain and no additional nausea/vomiting. Is hopeful to go home tomorrow. States she has been moving her bowels today and denies any blood or diarrhea. Objective Last 8 Hrs Date Time Temp Pulse Resp B/P (MAP) Pulse Ox O2 Delivery O2 Flow Rate FiO2 07/01/17 16:00 94 Room Air 07/01/17 15:42 36.8 71 18 128/83 (98) 95 Room Air Physical Exam: GENERAL: Patient is in no acute distress. HEENT: No acute trauma, normocephalic, mucous membranes moist, no nasal congestion, no scleral icterus. NECK: No stridor, trachea is midline. LUNGS: Clear to auscultation bilaterally, no wheeze, no rhonchi, breath sounds equal. HEART: Without murmurs gallops or rubs, regular rate and rhythm. ABDOMEN: Soft, nontender, bowel sounds positive, no peritonitis. No hepatosplenomegaly EXTREMITIES: No cyanosis or edema, full range of motion of all the joints without pain or difficulty, no signs for acute trauma. NEUROLOGIC: Oriented x 3, no acute motor or sensory deficits, no focal weakness. SKIN: No rash, no jaundice, no diaphoresis. Laboratory Results: Last 24 Hours Test 07/01/17 05:45 07/01/17 05:46 Prothrombin Time 10.0 SECONDS Prothromb Time International Ratio 0.9 Sodium Level 139 mmol/L Potassium Level 3.9 mmol/L Chloride Level 105 mmol/L Carbon Dioxide Level 26 mmol/L Anion Gap 8.0 mmol/L Blood Urea Nitrogen 10 mg/dl Creatinine 0.62 mg/dl Est Creatinine Clear Calc Drug Dose 119.0 ml/min Estimated GFR () 109.7 Estimated GFR (Non- 94.6 BUN/Creatinine Ratio 16.4 Random Glucose 111 mg/dl Calcium Level 8.6 mg/dl Total Bilirubin 1.1 mg/dl Aspartate Amino Transf (AST/SGOT) 98 U/L Alanine Aminotransferase (ALT/SGPT) 76 U/L Alkaline Phosphatase 214 U/L Total Protein 7.4 gm/dl Albumin 3.1 gm/dl Globulin 4.3 gm/dl Albumin/Globulin Ratio 0.7 Assessment & Plan Acute diverticulitis: -patient presented with LLQ abdominal pain, with N/V -CT abd/pelvis: findings consistent with chronic diverticular disease at the junction of the descending and sigmoid colon with superimposed mild uncomplicated acute diverticulitis. -was given Zosyn in the ER, continued today and now switched over to PO augmentin per GI as pain resolved and tolerating clear liquids -pain control PRN -IV fluid -GI consulted, appreciate recs. Patient needs follow up in 8 weeks for endoscopic evaluation and further evaluation of liver nodularity seen on CT scan Lung Nodule: -stable -follow up imaging as outpatient HTN: -continue Novasc -stable Current Inpatient Medications: Current Inpatient Medications Medications (Trade) Dose Ordered Sig/Misti Route Start Time Stop Time Status Last Admin Dose Admin Ioversol (Optiray 320) 100 ml UD PRN IV 06/30/17 18:00 07/04/17 17:59 Enoxaparin Sodium (Lovenox Inj) 40 mg QAM SQ 07/01/17 08:00 07/31/17 07:59 07/01/17 13:20 40 MG Amlodipine Besylate (Norvasc Tab) 5 mg DAILY PO 07/01/17 08:00 07/31/17 07:59 07/01/17 13:16 5 MG Fluticasone Propionate (Flonase Nasal [place]) 2 sprays BID RICHARD 07/01/17 08:00 07/31/17 07:59 Multivitamins/ Minerals (Multivitamin W/ Minerals Tab) 2 tab DAILY PO 07/01/17 08:00 07/31/17 07:59 Miscellaneous Information (Order Awaiting Action) 1 ea DAILY N/A 07/01/17 08:00 07/31/17 07:59 Sodium Chloride 1,000 ml @ 80 mls/hr [id number] IV 07/01/17 01:00 07/31/17 00:59 07/01/17 13:20 80 MLS/HR Ondansetron HCl (Zofran Inj) 4 mg Q6H PRN IV 07/01/17 03:30 07/31/17 03:29 07/01/17 09:02 4 MG Promethazine HCl 12.5 mg/Sodium Chloride 50.5 ml @ 204 mls/hr Q6H PRN IV 07/01/17 10:45 07/31/17 10:44 Amoxicillin/ Clavulanate Potassium (Augmentin Tab) 875 mg BIDM PO 07/01/17 20:00 07/11/17 19:59
[2017-07-01] MEDS: AMOXICILLIN/CLAVULANATE TAB 875 MG TAB PO SCH (19:56)
[2017-07-01 20:00] VITALS: O2SAT 94
[2017-07-01] MEDS ORDERED: NURSING VERBAL MED ORDER ONE (20:15)
[2017-07-01 23:04] VITALS: BP 123/73; PULSE 67; TEMP 36.8; O2SAT 94
[2017-07-02] VITALS: O2SAT 94
[2017-07-02 07:43] VITALS: BP 133/85; PULSE 68; TEMP 36.8; O2SAT 91
[2017-07-02] MEDS: CEROVITE ADV FORMULA TAB PO SCH (07:49)
[2017-07-02] MEDS: AMOXICILLIN/CLAVULANATE TAB 875 MG TAB PO SCH (07:49)
[2017-07-02] MEDS: AMLODIPINE BESYLATE 5 MG TAB PO SCH (07:50)
[2017-07-02] MEDS: FLUTICASONE PROPIONATE NA SPR 16 GM BTL NAE SCH (07:50)
[2017-07-02] MEDS: [UNRECOGNIZED DRUG - OTHER] SCH (07:50)
[2017-07-02] MEDS: ENOXAPARIN 40 MG/0.4 ML SYR SQ SCH (07:51)
[2017-07-02 08:00] VITALS: O2SAT 94
[2017-07-02] MEDS ORDERED: AMOX1TAB43 PO (14:28)
--- NOTE | 2017-07-02 14:34 | Discharge Instructions ---
Discharge Instructions Date of Service Jul 02, 2017. Admission Reason for Admission: Acute Diverticulitis Discharge Discharge Diagnosis / Problem: Diverticulitis Discharge Goals Goal(s): Diagnostic testing, Therapeutic intervention Activity Recommendations Activity Limitations: resume your previous activity . Instructions / Follow-Up Instructions / Follow-Up Please see Dr. Conde on July 04 at 10:45 AM [facility] see [facility] in 8 weeks for colonoscopy and fibroscan of liver (will need to be arranged as an outpatient) Current Hospital Diet Patient's current hospital diet: Full Liquid Diet Discharge Diet Recommended Diet: Low Fiber Diet (Low residue diet for 1 week then resume regular diet) Pending Studies Studies pending at discharge: no Medical Emergencies . Who to Call and When: Medical Emergencies: If at any time you feel your situation is an emergency, please call 911 immediately. . Non-Emergent Contact Non-Emergency issues call your: Primary Care Provider, Printing Roller Handler . . "Provider Documentation" section prepared by Rachel Lorenzana. . VTE Core Measure Inpt VTE Proph given/why not?: Enoxaparin (Lovenox)SQ
--- NOTE | 2017-07-02 14:38 | Discharge Summary ---
Discharge Summary Date of Service Jul 02, 2017. Discharge Summary Admission Date: Jun 30, 2017 at 23:03 Discharge Date: Jul 02, 2017 Discharge Disposition: Home Principal Diagnosis: Diverticulitis Pending Studies/Follow-Up: GI follow up of nodularity on liver (fibroscan), and colonoscopy in 8 weeks Medication Reconciliation New Medications: Amoxicillin & Pot Clavulanate (Amoxicillin/Clavulanate P) 1 Tab Tab 875 MG PO BIDM for 12 Days, #24 TAB Continued Medications: Amlodipine Besylate (Amlodipine Besylate) 5 Mg Tab 5 MG PO DAILY Azelastine HCl (Azelastine Hydrochloride) 0.1 % Spr 2 SPRAYS RICHARD HS Epinephrine (Epipen 2-Gerhard) 0.3 Mg Inj 0.3 MG INJ PRN UD Fluticasone Propionate (Fluticasone Propionate) 120 Sprays/6000 Mcg Inha 2 SPRAYS RICHARD BID Multivitamins/Minerals (Mvi With Minerals) Tab 2 TAB PO DAILY, TAB [True Biotic] () 1 TAB PO DAILY Admission Information HPI (per Admitting provider): 67 year old female with PMH of HTN, Diverticulosis, obesity, dyslipidemia presents to the Emergency Room with complaints of left lower quadrant abdominal pain associated with nausea and vomiting that started this morning. Pt describes the pain has constant, non radiate, throbbing and squeezing pain, worse with certain movements, 6/10. she said that she tried to take Gas-X with no relief. She said that yesterday she had diarrhea that seems resolved. Pt saw gastro back in January for her on/off diverticulosis. she said that she usually has pain base on what she eats, but she she said today pain was worst. she said that the last time she had similar abdominal pain was 3 yrs ago Pt said that she cannot tolerated flagyl and cipro because she develops yeast infection while on them. Denies any chest pain, palpitation, dizziness, fevers, chills, urinary symptoms. Physical Exam (per Admitting): General Appearance: WD/WN, no apparent distress Head: normocephalic, atraumatic Eyes: normal inspection, PERRL, EOMI ENT: hearing grossly normal Neck: no JVD, trachea midline Respiratory/Chest: normal breath sounds, no respiratory distress, no accessory muscle use Cardiovascular: regular rate, rhythm, no edema, no JVD Abdomen/GI: + tenderness (LLQ ) Back: no CVA tenderness Extremities/Musculoskelatal: no calf tenderness Neurologic/Psych: no motor/sensory deficits, alert, normal mood/affect, oriented x 3 Skin: warm/dry, no rash Hospital Course Acute diverticulitis: -patient presented with LLQ abdominal pain, with N/V -CT abd/pelvis: findings consistent with chronic diverticular disease at the junction of the descending and sigmoid colon with superimposed mild uncomplicated acute diverticulitis. -was given Zosyn in the ER, continued today and now switched over to PO augmentin which she will continued for a total of 14 days -pain resolved and tolerating regular diet -pain control PRN -IV fluid -GI consulted, appreciate recs. Patient needs follow up in 8 weeks for endoscopic evaluation and for further evaluation of liver nodularity seen on CT scan Lung Nodule: -stable -follow up imaging as outpatient HTN: -continue Novasc -stable PHYSICAL EXAM ON DAY OF DISCHARGE: GENERAL: Patient is in no acute distress. HEENT: No acute trauma, normocephalic atraumatic, mucous membranes moist, no nasal congestion, no scleral icterus. Conjunctivae clear NECK: No stridor, trachea is midline. LUNGS: Clear to auscultation bilaterally, no wheeze, no rhonchi, breath sounds equal. HEART: Without murmurs gallops or rubs, regular rate and rhythm. ABDOMEN: Soft, nontender, bowel sounds positive, no peritonitis. No hepatosplenomegaly EXTREMITIES: No cyanosis or edema, full range of motion of all the joints without pain or difficulty, no signs for acute trauma. NEUROLOGIC: Oriented x 3, no acute motor or sensory deficits, no focal weakness. SKIN: No rash, no jaundice, no diaphoresis. Total time spent on discharge = 37 This includes examination of the patient, discharge planning, medication reconciliation, and communication with other providers. Discharge Instructions see patient instructions
[2017-07-02 14:40] VITALS: BP 133/85; PULSE 68; TEMP 36.8; O2SAT 94
== END 2017-07-02 15:24 | disposition home or self-care (01) | DRG 392 ==
LOC: C.EDB 15:44 → C.4E 23:03 → ENRESERV 23:16
PROVIDERS: ADMIT Internal Medicine; ATTEND Internal Medicine
DX: K57.32 Diverticulitis of large intestine without perforation or abscess without bleeding (principal); R91.1 Solitary pulmonary nodule; R93.2 Abnormal findings on diagnostic imaging of liver and biliary tract; K76.0 Fatty (change of) liver, not elsewhere classified; I10 Essential (primary) hypertension; E66.9 Obesity, unspecified; Z51.81 Encounter for therapeutic drug level monitoring; Z79.899 Other long term (current) drug therapy; Z68.35 Body mass index [BMI] 35.0-35.9, adult

== ENCOUNTER → 2017-11-15 | Outpatient (CLI) | payer OTHER ==
[~2017-11-15] MED LIST changes: +AMOX1TAB43 PO; +AZEL0.1S2 NAE; -DXY100 PO; -EPP3/2 IM; +EPP3/2 INJ; -FLNIN NAE; +FLNIN/ NAE; -LISI-792 PO; -LORA10CA2 PO; +MULT-513 PO; +NRV/5 PO; +TRUE BIOTIC PO
--- NOTE | 2017-11-16 07:49 | MAMMOGRAPHY REPORT ---
BILATERAL DIGITAL SCREENING MAMMOGRAM TOMOSYNTHESIS WITH CAD: 11/15/2017 CLINICAL HISTORY: Routine screening. TECHNIQUE: Breast tomosynthesis in addition to standard 2D mammography was performed. Current study was also evaluated with a Computer Aided Detection (CAD) system. COMPARISON: Comparison is made to exams dated: 11/11/2016 mammogram, 11/11/2015 mammogram, 11/06/2014 m ammogram, 11/01/2013 mammogram, 10/31/2012 mammogram, and 10/31/2011 mammogram - [facility] enter. BREAST COMPOSITION: There are scattered areas of fibroglandular density in both breasts. FINDINGS: No suspicious masses, calcifications, or areas of architectural distortion are noted in ei ther breast. There has been no significant interval change compared to prior exams. IMPRESSION: ACR BI-RADS CATEGORY 1: NEGATIVE There is no mammographic evidence of malignancy. A 1 year screening mammogram is recommended. The pa tient will receive written notification of the results. Approximately 10% of breast cancers are not detected with mammography. A negative mammographic report should not delay biopsy if a clinically suggestive mass is present. Yumiko Rivera M.D. ah/:11/15/2017 09:38:04 [employer]ionics Systems Integration Specialist: Kandis HOYOS(R)(M), [facility] letter sent: Normal 1/2 BI-RADS Code: ACR BI-RADS Category 1: Negative
== END | disposition home or self-care (01) ==
LOC: C.MAMM 08:49
PROVIDERS: ATTEND Family Medicine
DX: Z12.31 Encounter for screening mammogram for malignant neoplasm of breast (principal)